=== PATIENT | male | born 1985 | race Asian ===

== ENCOUNTER → 2017-12-23 | Outpatient (CLI) | payer OTHER | END | disposition home or self-care (01) | LOC: WOUND 09:55 | PROVIDERS: ATTEND Internal Medicine | DX: T23.69 Corrosion of second degree of multiple sites of wrist and hand (principal); T53.5X1A Toxic effect of chlorofluorocarbons, accidental (unintentional), initial encounter; S61.432A Puncture wound without foreign body of left hand, initial encounter; X58.XXXA Exposure to other specified factors, initial encounter; Y93.89 Activity, other specified; Y92.89 Other specified places as the place of occurrence of the external cause; Y99.8 Other external cause status | CPT/HCPCS: 11042; 11045; 99204 ==

== ENCOUNTER 2017-12-30 09:59 | Outpatient (CLI) | payer OTHER | END 2018-01-11 11:09 | disposition home or self-care (01) | LOC: WOUND 09:59 | PROVIDERS: ATTEND Internal Medicine | DX: T23.69 Corrosion of second degree of multiple sites of wrist and hand (principal); M24.542 Contracture, left hand; T53.5X Toxic effects of chlorofluorocarbons | CPT/HCPCS: 97597; 97598 ==

== ENCOUNTER → 2018-01-06 | Outpatient (CLI) | payer OTHER | END | disposition home or self-care (01) | LOC: WOUND 10:02 | PROVIDERS: ATTEND Internal Medicine | DX: T23.69 Corrosion of second degree of multiple sites of wrist and hand (principal); M24.452 Recurrent dislocation, left hip; T53.5X Toxic effects of chlorofluorocarbons | CPT/HCPCS: 97597; 97598 ==

== ENCOUNTER → 2018-01-13 | Outpatient (CLI) | payer OTHER | END | disposition home or self-care (01) | LOC: WOUND 09:18 | PROVIDERS: ATTEND Internal Medicine | DX: T23.69 Corrosion of second degree of multiple sites of wrist and hand (principal); S60.5 Other superficial injuries of hand; M24.542 Contracture, left hand; V00-Y99 External causes of morbidity | CPT/HCPCS: 97597; 97598 ==